=== PATIENT | male | born 1990 | race Caucasian/White ===

== ENCOUNTER 2016-05-30 17:55 | Emergency (ER) | payer OTHER | END 2016-05-30 18:40 | disposition home or self-care (01) | DX: K13.79 Other lesions of oral mucosa (principal) ==

== ENCOUNTER 2016-12-25 10:59 | Emergency (ER) | payer OTHER ==
--- NOTE | 2016-12-25 12:30 | ED Physician Documentation ---
PD HPI UPPER EXT INJURY - Stated complaint Stated Complaint: LT HAND SWELLING - Chief complaint Chief Complaint: Ext Problem - History obtained from History obtained from: Patient - History of Present Illness Location: Other (Stung by something while at work at the [employer] today about an hour ago to the left second finger with swelling of that hand but no systemic symptoms, throat swelling, shortness of breath, or generalized rash.) Review of Systems Constitutional: reports: Reviewed and negative Nose: denies: Rhinorrhea / runny nose, Congestion Throat: denies: Sore throat Cardiac: denies: Chest pain / pressure, Palpitations Respiratory: denies: Dyspnea PD PAST MEDICAL HISTORY - Past Surgical History Past Surgical History: No - Present Medications Home Medications: Ambulatory Orders Medication Instructions Recorded Confirmed Albuterol Sulfate [Proair Hfa 2 puffs IH QID #1 hfa.aer.ad 12/29/14 12/25/16 Inhaler] predniSONE [Deltasone] 60 mg PO DAILY 5 Days tablet 12/25/16 - Allergies Allergies/Adverse Reactions: Allergies Allergy/AdvReac Type Severity Reaction Status Date / Time amoxicillin Allergy Anaphylaxis Verified 12/25/16 11:19 - Social History Does the pt smoke?: No Smoking Status: Never smoker Does the pt drink ETOH?: Yes Does the pt have substance abuse?: No - Immunizations Immunizations are current?: Yes - POLST Patient has POLST: No PD ED PE NORMAL - Vitals Vital signs reviewed: Yes - General General: Alert and oriented X 3, No acute distress - Extremities Extremities: Other (The left hand is swollen and slightly red to just about the proximal metacarpals with the swelling seeming to emanate from the left second finger, some limited range of motion due to the swelling.) - Neuro Neuro: Alert and oriented X 3, Normal speech - Psych Psych: Normal mood, Normal affect Results - Vitals Vitals: Vital Signs - 24 hr 12/25/16 11:17 Temperature 36.6 C Respiratory 79 H Rate Blood Pressure 127/78 O2 Saturation 96 Oxygen O2 Source Room air PD MEDICAL DECISION MAKING - ED course ED course: He had a unknown insect sting about an hour ago to left second finger with localized reaction. There is no evidence of infection, and no evidence of anaphylaxis. Departure - Departure Disposition: 01 Home, Self Care Clinical Impression: Insect bite Qualifiers: Encounter type: initial encounter Qualified Code(s): W57.XXXA - Bitten or stung by nonvenomous insect and other nonvenomous arthropods, initial encounter Condition: Good Record reviewed to determine appropriate education?: Yes Instructions: ED Bite Sting Insect Local Allergic React Prescriptions: predniSONE [Deltasone] 60 mg PO DAILY 5 Days tablet Comments: Return if worsening or if new symptoms develop. Follow-up with your doctor in 3 days if not better. Take Benadryl [id number] as needed for the itching and burning. Forms: Activity restrictions
[2016-12-25 12:36] VITALS: BP 111/71
== END 2016-12-25 12:35 | disposition home or self-care (01) ==
LOC: ED 10:59
DX: S60.461A Insect bite (nonvenomous) of left index finger, initial encounter (principal); W57.XXXA Bitten or stung by nonvenomous insect and other nonvenomous arthropods, initial encounter; Y92.139 Unspecified place military base as the place of occurrence of the external cause; Y99.1 Military activity
CPT/HCPCS: 99283

== ENCOUNTER 2018-09-04 10:30 | Emergency (ER) | payer BC, OTHER ==
[2018-09-04] MEDS ORDERED: HYDROmorphone 1 MG/ML CARPUJECT IM STA (10:32)
[2018-09-04] MEDS ORDERED: SODIUM CHLORIDE 0.9% 1,000 ML IV ONE (10:33)
[2018-09-04] MEDS ORDERED: HYDROmorphone 1 MG/ML CARPUJECT IVP STA ×3 (10:49→12:24)
--- NOTE | 2018-09-04 11:07 | XRAY Report ---
Reason: Right forefoot crush injury. Procedure Date: 09/04/2018 Accession Number: [id number] / [id number] Procedure: XR - Foot 3 View RT CPT Code: FULL RESULT: EXAM: RIGHT FOOT RADIOGRAPHY EXAM DATE: 09/04/2018 10:40 AM. CLINICAL HISTORY: Right forefoot crush injury. Trailer fell onto toes of right foot. COMPARISON: None. TECHNIQUE: 3 views. FINDINGS: Bones: There are multiple acute displaced fractures of the phalanges of all 5 toes. Great toe: There is an acute comminuted displaced fracture of the tuft of the distal phalanx. Second toe: There is an acute minimally displaced comminuted fracture of the tuft of the distal phalanx. Third toe: There is an acute minimally displaced comminuted fracture of the tuft of the distal phalanx. There is an acute mildly displaced transverse fracture of the shaft of the proximal phalanx. Fourth toe: Acute mildly displaced transverse fracture of the tuft of the distal phalanx. There is an acute displaced fracture of the neck of the proximal phalanx. The distal fragment is displaced laterally by one full shaft width. Fifth toe: There is an acute comminuted fracture of the distal phalanx. 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 There is an acute displaced transverse fracture of the neck of the proximal phalanx. The distal fragment is displaced laterally by one full shaft width. The other visualized bones of the foot appear intact. No bone lesion. Joints: Normal. No subluxations. Soft Tissues: There is soft tissue swelling of the toes and forefoot. IMPRESSION: Multiple acute displaced fractures of the phalanges of all 5 toes, as described above. If there is damage to the overlying nail bed, a distal phalangeal fracture should be considered an open fracture. RADIA
[2018-09-04] MEDS ORDERED: ceFAZolin 1 GM in SODIUM CHLORIDE 0.9% MINIBAG 100 ML IV STA (11:20)
[2018-09-04 12:04] LABS: BASOPHILS # (AUTO) 0.1 10^3/uL (0.0-0.1); BASOPHILS % (AUTO) 0.9 %; EOSINOPHILS # (AUTO) 0.8 10^3/uL (0.0-0.7); EOSINOPHILS % (AUTO) 6.9 %; HGB - HEMOGLOBIN 14.2 g/dL (14.0-18.0); LYMPHOCYTES # (AUTO) 1.3 10^3/uL (1.5-3.5); LYMPHOCYTES % (AUTO) 11.1 %; MEAN CORPUSCULAR HEMOGLOBIN 31.3 pg (27.0-31.0); MEAN CORPUSCULAR HGB CONC 34.1 g/dL (32.0-36.0); MEAN CORPUSCULAR VOLUME 92.1 fL (80.0-94.0); MONOCYTES # (AUTO) 0.6 10^3/uL (0.0-1.0); MONOCYTES % (AUTO) 5.5 %; NEUTROPHILS # (AUTO) 8.7 10^3/uL (1.5-6.6); NEUTROPHILS % (AUTO) 75.3 %; PLT - PLATELET COUNT 209 10^3/uL (130-450); RED BLOOD COUNT 4.53 10^6/uL (4.70-6.10); RED CELL DISTRIBUTION WIDTH 11.8 % (12.0-15.0); WHITE BLOOD COUNT 11.5 x10^3/uL (4.8-10.8)
--- NOTE | 2018-09-04 12:05 | ED Physician Documentation ---
PD HPI LOWER EXT INJURY - Stated complaint Stated Complaint: RT LEG PX - Chief complaint Chief Complaint: Trauma Ext - History obtained from History obtained from: Patient - History of Present Illness PD HPI LOW EXT INJURY LOCATION: Right, Foot Type of injury: Crush Where injury occurred: Street Timing - onset: How many minutes ago (Just prior to arrival.) Associated symptoms: Swelling, Discolored Similar symptoms before: Has not had sx before - Additional information Additional information: The patient is a 27-year-old male who presents with severe right foot pain after the hitch of a loaded trailer dropped onto the toes of his right foot just prior to arrival. He denies any other injuries. Tetanus status is up-to-date. Review of Systems GI: denies: Nausea, Vomiting Musculoskeletal: reports: Extremity pain (Severe right foot pain.), Extremity swelling, Pain with weight bearing Neurologic: denies: Focal weakness, Numbness PD PAST MEDICAL HISTORY - Past Medical History Past Medical History: No Endocrine/Autoimmune: None - Past Surgical History Past Surgical History: No - Present Medications Home Medications: Ambulatory Orders Medication Instructions Recorded Confirmed Albuterol Sulfate [Proair Hfa 2 puffs IH QID #1 hfa.aer.ad 12/29/14 12/25/16 Inhaler] predniSONE [Deltasone] 60 mg PO DAILY 5 Days tablet 12/25/16 Oxycodone HCl/Acetaminophen 1 - 2 each PO Q6H PRN #30 tablet 09/04/18 [Percocet 5-325 mg Tablet] cephALEXin [Cephalexin] 500 mg PO TID #15 tablet 09/04/18 - Allergies Allergies/Adverse Reactions: Allergies Allergy/AdvReac Type Severity Reaction Status Date / Time amoxicillin Allergy Anaphylaxis Verified 12/25/16 11:19 - Social History Does the pt smoke?: No Smoking Status: Never smoker Does the pt drink ETOH?: Yes Does the pt have substance abuse?: No - Immunizations Immunizations are current?: Yes - POLST Patient has POLST: No PD ED PE NORMAL - Vitals Vital signs reviewed: Yes (normal) - General General: Alert and oriented X 3, Well developed/nourished, Other (Appears in extreme discomfort.) - HEENT HEENT: Atraumatic - Respiratory Respiratory: No respiratory distress - Derm Derm: No rash - Extremities Extremities: No calf tenderness / cord, Other (There is swelling and ecchymosis of all 5 toes of the right foot. There is subungual hematoma at the proximal half of the right great toenail, with the proximal portion of the toenail avulsed from the nailbed. Distal neurovascular is intact.) - Neuro Neuro: Alert and oriented X 3, No motor deficit, No sensory deficit Results - Vitals Vitals: Vital Signs - 24 hr 09/04/18 09/04/18 09/04/18 10:32 10:37 12:34 Temperature 36.4 C L Heart Rate 102 H 100 76 Respiratory 22 16 16 Rate Blood Pressure 119/79 119/79 111/74 O2 Saturation 98 97 100 Oxygen O2 Source Room air - Labs Labs: Laboratory Tests 09/04/18 09/04/18 11:59 11:59 WBC 11.5 H RBC 4.53 L Hgb 14.2 Hct 41.7 L MCV 92.1 MCH 31.3 H MCHC 34.1 RDW 11.8 L Plt Count 209 MPV 10.0 Neut # (Auto) 8.7 H Lymph # (Auto) 1.3 L [place] # (Auto) 0.6 Eos # (Auto) 0.8 H Baso # (Auto) 0.1 Absolute Nucleated RBC 0.00 Nucleated RBC % 0.0 Sodium 137 Potassium 3.8 Chloride 107 Carbon Dioxide 22 Anion Gap 8.0 BUN 16 Creatinine 0.9 Estimated GFR (MDRD) 100 Glucose 118 H Calcium 8.6 Total Bilirubin 0.8 AST 19 ALT 21 Alkaline Phosphatase 47 Total Protein 6.6 L Albumin 4.2 Globulin 2.4 Albumin/Globulin Ratio 1.8 Lipase 38 - Rads (name of study) Right foot Radiology: Prelim report reviewed, EMP read contemporaneously, See rad report (Multiple acute displaced fractures of the phalanges of all 5 toes, as described above. If there is damage to the overlying nailbed a distal phalangeal fracture should be considered an open fracture.) PD MEDICAL DECISION MAKING - ED course Complexity details: reviewed results, re-evaluated patient, considered differential, d/w patient, d/w family, d/w agriculture consultant ED course: The patient's presentation is significant for multiple comminuted fractures of the toes on his right foot. This includes comminuted open fracture of the distal phalanx of the great toe, fractures of the proximal phalanges of the third, fourth and fifth toes, and tuft fractures of the second through fifth toes. Treatment in the emergency department included cleaning of the wound on the great toe and application of nonadhesive dressing and bulky gauze pad and application of a postop shoe. I discussed his condition with Dr. Bell, on- call for orthopedics, and he advises outpatient follow-up. Ancef 1 g was admini stered IV, and Dilaudid 1 mg was administered IV x3. Crutches were dispensed. I discussed with the patient and his family symptomatic care, the importance of orthopedic follow-up, as well as potentially worrisome signs or symptoms that should prompt reevaluation in the emergency department. He is being discharged with prescriptions for cephalexin and for Percocet, 30 tablets. The patient advises me that the trailer was loaded with his belongings and the family had planned to start their journey back to [place] today. He plans to continue the trip. I emphasized to him the importance of keeping his right foot elevated. Departure - Departure Disposition: 01 Home, Self Care Clinical Impression: Open fracture of right great toe Qualifiers: Encounter type: initial encounter Phalanx: distal Salter-Horton Fracture Type: unspecified configuration Fracture of multiple toes Qualifiers: Encounter type: initial encounter Fracture type: open Laterality: right Qualified Code(s): S92.911B - Unspecified fracture of right toe(s), initial encounter for open fracture Condition: Stable Health Concerns: Pain, swelling, or infection of right foot with multiple toe fractures. Plan of Treatment: Ice, elevation, antibiotic, pain medication, orthopedic follow up. Care Goals: Healing of fractured toes. Assessment: see above Instructions: ED Fx Foot Follow-Up: Maryjo Bell MD [Provider Admit Priv/Credential] - Prescriptions: cephALEXin [Cephalexin] 500 mg PO TID #15 tablet Oxycodone HCl/Acetaminophen [Percocet 5-325 mg Tablet] 1 - 2 each PO Q6H PRN #30 tablet PRN Reason: pain Comments: Keep your right foot elevated as much of the time as possible. Apply ice pack to your foot intermittently for the next 4 days. Use the postop shoe and crutches when walking. Take cephalexin 3 times daily for the next 5 days as prescribed. You can use ibuprofen, up to 800 mg 3 times daily for its anti-inflammatory effect. You can use Percocet as prescribed if needed for pain. Follow-up with orthopedics within 1 week if possible. Call to schedule an appointment. Return to the emergency department if you develop markedly increasing pain despite the pain medication, any sign of infection, or otherwise worsening symptoms. Discharge Date/Time: 09/04/18 13:51
[2018-09-04 12:19] LABS: ALBUMIN 4.2 g/dL (3.2-5.5); ALBUMIN/GLOBULIN RATIO 1.8 (1.0-2.2); BILIRUBIN,TOTAL 0.8 mg/dL (0.2-1.0); CALCIUM 8.6 mg/dL (8.5-10.3); CREATININE 0.9 mg/dL (0.6-1.2); TOTAL PROTEIN 6.6 g/dL (6.7-8.2)
[2018-09-04 12:39] VITALS: BP 111/74
[2018-09-04] MEDS ORDERED: BACITRACIN OINT TOP STA (13:02)
== END 2018-09-04 13:51 | disposition home or self-care (01) ==
LOC: ED 10:30
DX: S92.421B Displaced fracture of distal phalanx of right great toe, initial encounter for open fracture (principal); S92.531A Displaced fracture of distal phalanx of right lesser toe(s), initial encounter for closed fracture; S92.511A Displaced fracture of proximal phalanx of right lesser toe(s), initial encounter for closed fracture; W20.8XXA Other cause of strike by thrown, projected or falling object, initial encounter; Y92.410 Unspecified street and highway as the place of occurrence of the external cause
CPT/HCPCS: 36415; 73630; 80053; 83690; 85025; 96365; 96375; 96376; 99284; J1170